=== PATIENT | female | born 1970 | race Caucasian/White ===

== ENCOUNTER 2016-11-08 07:25 | Day surgery (SDC) | payer BC ==
--- NOTE | ~2016-11-08 | EGD ---
EGD REPORT [facility] [address] [place]. [address] NAME: KATHARINA MURILLO : [birth year] STATUS : REG [facility]#: [id number] AGE: 46 ADM/REG DATE : 11/08/16 MR#: [id number] REPORT SERV DATE: 11/08/16 DICTATED BY: DATE: REPORT STATUS : Draft TRANSCRIBED BY: [employer] DATE: 11/08/16 [facility] Patient Name: Katharina Murillo Date of : 1970 Attending MD: KADIE CID MD Procedure Date No Time: 11/08/2016 Procedure: Upper GI endoscopy Indications: Dysphagia Referring MD: TRIPP ARGUETA Medicines: Monitored Anesthesia Care Complications: No immediate complications. Procedure: Pre-Anesthesia Assessment: - ASA Grade Assessment: III - A patient with severe systemic disease. After obtaining informed consent, the endoscope was passed under direct vision. Throughout the procedure, the patient's blood pressure, pulse, and oxygen saturations were monitored continuously. The GIF [id number] was introduced through the mouth, and advanced to the third part of duodenum. The upper GI endoscopy was accomplished without difficulty. The patient tolerated the procedure well. Findings: The examined esophagus was normal. Biopsies were taken with a cold forceps for histology for EoE. There is no endoscopic evidence of Frost's esophagus, areas of erosion, ulcerations or varices in the entire esophagus. Note a hiatal hernia was seen on barium study but this is not visualized in forward view or retroflexion, even during hiccups. The entire examined stomach was normal. There is no endoscopic evidence of erythema, hiatus hernia, inflammation, mucosal abnormalities, ulceration or varices in the entire examined stomach. The examined duodenum was normal. There is no endoscopic evidence of inflammation, mucosal abnormalities or ulceration in the entire examined duodenum. The cardia and gastric fundus were normal on retroflexion. A guidewire was placed and the scope was withdrawn. Dilation was performed in the entire esophagus with a Savary dilator with no resistance at 54 Fr. Impression: - Normal esophagus. Biopsied. - Normal stomach. - Normal examined duodenum. EGD REPORT [address] [address] NAME: KATHARINA MURILLO : [birth year] [place]US [place] [facility] [place] [id number] AGE: 46 ADM/REG DATE : 11/08/16 MR#: [id number] REPORT SERV DATE: 11/08/16 DICTATED BY: DATE: REPORT STATUS : Draft TRANSCRIBED BY: [employer] DATE: 11/08/16 - Dilation attempted in the entire esophagus. Successful. Recommendation: - Patient has a contact number available for emergencies. The signs and symptoms of potential delayed complications were discussed with the patient. Return to normal activities tomorrow. Written discharge instructions were provided to the patient. - Return to previous diet. - Discharge patient to home. - Continue present medications. - Await pathology results. - Sublingual Levsin at onset symptoms if these recur. Contact us and will schedule evaluation of swallow function. Procedure Code(s): --- Professional --- 44589, Esophagogastroduodenoscopy, flexible, transoral; with insertion of guide wire followed by passage of dilator(s) through esophagus over guide wire 27063, Esophagogastroduodenoscopy, flexible, transoral; with biopsy, single or multiple Diagnosis Code(s): --- Professional --- R13.10, Dysphagia, unspecified CPT copyright 2013 [employer]. All rights reserved. The codes documented in this report are preliminary and upon cash grain grower review may be revised to meet current compliance requirements. KADIE CID MD 11/08/2016 10:15 AM This report has been signed electronically. Number of Addenda: 0 Note Initiated On: 11/08/2016 9:59 AM Scope Withdrawal Time 0 hours 0 minutes 0 seconds [address] [place] [address]
[~2016-11-08 07:25] MED LIST: ATEN100 PO; ATEN50 PO; BEN25 PO; COMP10B PO; CONCERTA36 PO; CONCERTA56 PO; CYMBALTA20 PO; FORTAMET500 MG PO; GI COCKTAIL PO; GLUCPH PO; KLONO1 PO; LAMICTAL10 PO; LAMICTAL200 MG PO; LEXAPRO5 MG PO; LIPITOR20 PO; LORT7 PO; LUNESTA2 M1 OR; LUNESTA3 MG PO; LYRICA50 PO; PHEN50TAB PO; PRILO PO; PRILOSEC OTC20 MG PO; PRIN2.5 PO; PROVHFA INH; SEASONIQUE OR; SEROQUEL400 MG PO; TRAZODONE300 MG PO; WELLSR150 PO; WELLXL300 PO; ZOCOR40 PO
== END 2016-11-08 23:59 | disposition home or self-care (01) ==
LOC: DMU 07:25
PROVIDERS: Internal Medicine Gastroenterology
PROC: 0D758ZZ Dilation of Esophagus, Via Natural or Artificial Opening Endoscopic (ICD-10-PCS; principal; 2016-11-08 10:00)
PROC: 0DB58ZX Excision of Esophagus, Via Natural or Artificial Opening Endoscopic, Diagnostic (ICD-10-PCS; 2016-11-08 10:00)
DX: K22.8 Other specified diseases of esophagus (principal); E78.00 Pure hypercholesterolemia, unspecified; J45.909 Unspecified asthma, uncomplicated; M19.90 Unspecified osteoarthritis, unspecified site; M79.7 Fibromyalgia; F41.9 Anxiety disorder, unspecified; E11.9 Type 2 diabetes mellitus without complications; F32.9 Major depressive disorder, single episode, unspecified; K58.9 Irritable bowel syndrome, unspecified; Z88.5 Allergy status to narcotic agent; Z88.6 Allergy status to analgesic agent; Z88.1 Allergy status to other antibiotic agents; Z90.710 Acquired absence of both cervix and uterus; Z98.890 Other specified postprocedural states
CPT/HCPCS: 82962; 84703; 88305